=== PATIENT | male | born 1975 | race Hispanic/Latino ===

== ENCOUNTER 2019-10-07 01:49 | Emergency (ER) | payer OTHER ==
[2019-10-07 02:24] VITALS: BP 135/88
--- NOTE | 2019-10-07 02:39 | Emergency Department Report ---
ED ENT HPI - General Chief complaint: Earache Stated complaint: LEFT EARACHE Time Seen by Provider: 10/07/19 02:33 Source: patient Mode of arrival: Ambulatory Limitations: No Limitations - History of Present Illness MD complaint: ear pain -: Gradual Location: L ear Severity: mild, moderate Quality: dull Consistency: constant Worsens with: none Associated Symptoms: discharge from ear. denies: cough, gum swelling, toothache, sore throat, tinnitus - Related Data Previous Rx's Medication Instructions Recorded Last Taken Type Neomyc/Colist/Hydrocort/Thonzn 4 drops OS QID #10 ml 10/07/19 Unknown Rx [Cortisporin-Tc Ear Suspension] Allergies Allergy/AdvReac Type Severity Reaction Status Date / Time No Known Allergies Allergy Unverified 06/17/19 12:21 ED Dental HPI - General Chief complaint: Earache Stated complaint: LEFT EARACHE Time Seen by Provider: 10/07/19 02:33 Source: patient Mode of arrival: Ambulatory Limitations: No Limitations - Related Data Previous Rx's Medication Instructions Recorded Last Taken Type Neomyc/Colist/Hydrocort/Thonzn 4 drops OS QID #10 ml 10/07/19 Unknown Rx [Cortisporin-Tc Ear Suspension] Allergies Allergy/AdvReac Type Severity Reaction Status Date / Time No Known Allergies Allergy Unverified 06/17/19 12:21 ED Review of Systems ROS: Stated complaint: LEFT EARACHE Other details as noted in HPI Comment: All other systems reviewed and negative ED Past Medical Hx - Past Medical History Hx Diabetes: Yes Hx Psychiatric Treatment: Yes (Drug use, Behavioral) Additional medical history: prostate, bipolar, schizo, pstd, sciatic - Surgical History Additional Surgical History: hernia repair, boxer repair- right hand, nose sx - Social History Smoking Status: Current Every Day Smoker Substance Use Type: None - Medications Home Medications: Home Medications Medication Instructions Recorded Confirmed Last Taken Type Neomyc/Colist/Hydrocort/Thonzn 4 drops OS QID #10 ml 10/07/19 Unknown Rx [Cortisporin-Tc Ear Suspension] ED Physical Exam - General Limitations: No Limitations General appearance: alert, in no apparent distress - Head Head exam: Present: atraumatic, normocephalic - Eye Eye exam: Present: normal appearance - ENT ENT exam: Present: mucous membranes moist, other (Tragal tenderness in left ear. Mild canal swelling. No mastoid tenderness is noted. No no discharge. Right ear normal. Posterior pharynx is clear and patent no exudate) - Neck Neck exam: Present: normal inspection - Respiratory Respiratory exam: Present: normal lung sounds bilaterally. Absent: respiratory distress - Cardiovascular Cardiovascular Exam: Present: regular rate, normal rhythm. Absent: systolic murmur, diastolic murmur, rubs, gallop - GI/Abdominal GI/Abdominal exam: Present: soft, normal bowel sounds - Rectal Rectal exam: Present: deferred - Extremities Exam Extremities exam: Present: normal inspection - Back Exam Back exam: Present: normal inspection - Neurological Exam Neurological exam: Present: alert, oriented X3 - Psychiatric Psychiatric exam: Present: normal affect, normal mood - Skin Skin exam: Present: warm, dry, intact, normal color. Absent: rash ED Course Vital Signs 10/07/19 02:06 Temperature 98.0 F Pulse Rate 84 Respiratory 12 Rate Blood Pressure 135/88 O2 Sat by Pulse 99 Oximetry Critical care attestation.: If time is entered above; I have spent that time in minutes in the direct care of this critically ill patient, excluding procedure time. ED Disposition Clinical Impression: Otitis externa Disposition: DC-01 TO HOME OR SELFCARE Is pt being admited?: No Does the pt Need Aspirin: No Condition: Stable Instructions: Otitis Externa (ED) Prescriptions: Neomyc/Colist/Hydrocort/Thonzn [Cortisporin-Tc Ear Suspension] 4 drops OS QID #10 ml Referrals: PRIMARY CARE [Primary Care Provider] - 3-5 Days [facility] [Provider Group] - 3-5 Days
== END 2019-10-07 02:55 | disposition home or self-care (01) ==
LOC: ED 01:49
DX: H60.92 Unspecified otitis externa, left ear (principal); E11.9 Type 2 diabetes mellitus without complications; F25.0 Schizoaffective disorder, bipolar type; F17.200 Nicotine dependence, unspecified, uncomplicated; Z98.890 Other specified postprocedural states; Z79.899 Other long term (current) drug therapy
CPT/HCPCS: 99282

== ENCOUNTER 2019-10-18 03:18 | Emergency (ER) | payer OTHER ==
[2019-10-18] MEDS ORDERED: ACETAMINOPHEN 500 MG TAB PO ONE (04:51)
[2019-10-18] MEDS ORDERED: IBUPROFEN 600 MG TAB PO ONE (04:51)
[2019-10-18] MEDS ORDERED: predniSONE 20 MG TAB PO ONE (04:51)
--- NOTE | 2019-10-18 05:12 | Emergency Department Report ---
ED Extremity Problem HPI - General Chief complaint: Extremity Injury, Lower Stated complaint: LEFT HEEL PAIN Source: patient, EMS Mode of arrival: Stretcher Limitations: No Limitations - History of Present Illness Initial comments: Patient is a 43-year-old -Mongolian male with a history of bipolar disorder, schizophrenia, ejv-dtnurxu-snvywlfkx diabetes, chronic low back pain and chronic left plantar foot pain who presents to the ED with complaint of acute exacerbation of his chronic left plantar foot pain for the last 2 days. Patient states that he has not been able to bear weight on the left plantar foot at the heel. Patient also confirmed that he has been walking with in flip-flops and this may have made the pain worse. Patient denies traumatic injury, nausea, vomiting no chest pain, shortness of breath, fever, chills, back pain, traumatic injury or fall and heavy lifting. MD Complaint: extremity pain, joint paint (Left heel pain left plantar foot pain at the heel) -: Gradual, year(s) (2) Location: left, lower extremity (Left plantar foot at the heel) History of Same: Yes (Chronic) -: Yes arthralgia Radiation: distal Severity scale (0 -10): 7 Quality: aching, sharp Consistency: constant Improves with: rest Worsens with: weight bearing, walking, exertion, palpation Associated Symptoms: denies other symptoms, arthralgias. denies: chest pain, fever, myalgias, rash, other - Related Data Previous Rx's Medication Instructions Recorded Last Taken Type Neomyc/Colist/Hydrocort/Thonzn 4 drops OS QID #10 ml 10/07/19 Unknown Rx [Cortisporin-Tc Ear Suspension] Naproxen 500 mg PO Q12H PRN #30 tablet 10/18/19 Unknown Rx predniSONE [Deltasone] 60 mg PO QDAY #15 tab 10/18/19 Unknown Rx Allergies Allergy/AdvReac Type Severity Reaction Status Date / Time No Known Allergies Allergy Unverified 06/17/19 12:21 ED Review of Systems ROS: Stated complaint: LEFT HEEL PAIN Other details as noted in HPI Constitutional: denies: chills, fever Eyes: denies: eye pain, eye discharge, vision change ENT: denies: ear pain, throat pain Respiratory: denies: cough, shortness of breath, wheezing Cardiovascular: denies: chest pain, palpitations Endocrine: no symptoms reported Gastrointestinal: denies: abdominal pain, nausea, diarrhea Genitourinary: denies: urgency, dysuria Musculoskeletal: arthralgia (1 left plantar foot pain). denies: back pain, joint swelling Skin: denies: rash, lesions Neurological: denies: headache, weakness, paresthesias Psychiatric: denies: anxiety, depression Hematological/Lymphatic: denies: easy bleeding, easy bruising ED Past Medical Hx - Past Medical History Previous Medical History?: Yes Hx Diabetes: Yes Hx Psychiatric Treatment: Yes (Drug use, Behavioral) Additional medical history: prostate, bipolar, schizo, pstd, sciatic - Surgical History Past Surgical History?: Yes Additional Surgical History: hernia repair, boxer repair- right hand, nose sx - Social History Smoking Status: Current Every Day Smoker Substance Use Type: None - Medications Home Medications: Home Medications Medication Instructions Recorded Confirmed Last Taken Type Neomyc/Colist/Hydrocort/Thonzn 4 drops OS QID #10 ml 10/07/19 Unknown Rx [Cortisporin-Tc Ear Suspension] Naproxen 500 mg PO Q12H PRN #30 tablet 10/18/19 Unknown Rx predniSONE [Deltasone] 60 mg PO QDAY #15 tab 10/18/19 Unknown Rx ED Physical Exam - General Limitations: No Limitations General appearance: alert, in no apparent distress - Head Head exam: Present: atraumatic, normocephalic, normal inspection - Eye Eye exam: Present: normal appearance, PERRL, EOMI Pupils: Present: normal accommodation - ENT ENT exam: Present: normal exam, normal orophraynx, mucous membranes moist, TM's normal bilaterally, normal external ear exam - Neck Neck exam: Present: normal inspection, full ROM - Respiratory Respiratory exam: Present: normal lung sounds bilaterally. Absent: respiratory distress, wheezes, rales, rhonchi, chest wall tenderness, accessory muscle use, decreased breath sounds, prolonged expiratory - Cardiovascular Cardiovascular Exam: Present: regular rate, normal rhythm, normal heart sounds. Absent: systolic murmur, diastolic murmur, rubs, gallop - GI/Abdominal GI/Abdominal exam: Present: soft, normal bowel sounds. Absent: tenderness, guarding, rebound, hyperactive bowel sounds, hypoactive bowel sounds, organomegaly - Extremities Exam Extremities exam: Present: normal inspection, full ROM, tenderness (Palpable left plantar foot tenderness), normal capillary refill. Absent: pedal edema, calf tenderness - Back Exam Back exam: Present: normal inspection, full ROM. Absent: tenderness, CVA tenderness (R), CVA tenderness (L), muscle spasm, paraspinal tenderness - Neurological Exam Neurological exam: Present: alert, oriented X3, CN II-XII intact, normal gait, reflexes normal - Psychiatric Psychiatric exam: Present: normal affect, normal mood - Skin Skin exam: Present: warm, dry, intact, normal color. Absent: rash ED Course Vital Signs 10/18/19 03:25 Temperature 98.6 F Pulse Rate 90 Respiratory 20 Rate Blood Pressure 136/92 O2 Sat by Pulse 95 Oximetry ED Medical Decision Making - Medical Decision Making This is a 43-year-old -Mongolian male with a history of bipolar disorder, schizophrenia, asn-tjdqlpy-rfalhcmoe diabetes, chronic low back pain and chronic left plantar foot pain who presents to the ED with complaint of acute exacerbation of his chronic left plantar foot pain for the last 2 days. Patient states that he has not been able to bear weight on the left plantar foot at the heel. Patient also confirmed that he has been walking with in flip-flops and this may have made the pain worse. In the ED, patient is alert and oriented x3 and is not in distress. Patient was treated for pain in the ED and was discharged home on pain medications and advised follow-up with his primary care physician in 5 to 7 days for reevaluation or return to the ED immediately if symptoms get worse. - Differential Diagnosis plantar fasciitis; Osteoarthritis; Tendonitis; Muscle strain Critical care attestation.: If time is entered above; I have spent that time in minutes in the direct care of this critically ill patient, excluding procedure time. ED Disposition Clinical Impression: Plantar fasciitis of left foot, Calcific tendinitis of left foot Disposition: DC-01 TO HOME OR SELFCARE Is pt being admited?: No Does the pt Need Aspirin: No Condition: Stable Instructions: Plantar Fasciitis (ED), Calcific Tendinitis (ED) Additional Instructions: Take medication with food, drink plenty of fluids and follow-up with your primary care physician in 5 to 7 days for reevaluation. Return to the ED immediately if symptoms get worse. Prescriptions: predniSONE [Deltasone] 60 mg PO QDAY #15 tab Naproxen 500 mg PO Q12H PRN #30 tablet PRN Reason: Pain , Severe (7-10) Referrals: [facility] [Provider Group] - 3-5 Days [facility] [Outside] - 3-5 Days Time of Disposition: 05:18 Print Language: TAIWANESE
[2019-10-18 06:44] VITALS: BP 128/88
== END 2019-10-18 06:06 | disposition home or self-care (01) ==
LOC: ED 03:18
DX: M72.2 Plantar fascial fibromatosis (principal); M65.272 Calcific tendinitis, left ankle and foot; F25.0 Schizoaffective disorder, bipolar type; E11.9 Type 2 diabetes mellitus without complications; F17.200 Nicotine dependence, unspecified, uncomplicated; Z98.890 Other specified postprocedural states; Z79.899 Other long term (current) drug therapy
CPT/HCPCS: 99283; J7512

== ENCOUNTER 2020-04-15 13:31 | Emergency (ER) | payer OTHER ==
[2020-04-15 13:49] VITALS: BP 116/82
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
== END 2020-04-15 15:45 | disposition home or self-care (01) ==
LOC: ED 13:31
DX: S66.912A Strain of unspecified muscle, fascia and tendon at wrist and hand level, left hand, initial encounter (principal); S60.221A Contusion of right hand, initial encounter; E11.9 Type 2 diabetes mellitus without complications; Z98.890 Other specified postprocedural states; Z79.899 Other long term (current) drug therapy; Y04.8XXA Assault by other bodily force, initial encounter; Y93.89 Activity, other specified; Y92.89 Other specified places as the place of occurrence of the external cause; Y99.0 Civilian activity done for income or pay

== ENCOUNTER 2020-04-19 15:41 | Emergency (ER) | payer OTHER ==
[2020-04-19 16:47] VITALS: BP 127/88
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
== END 2020-04-19 18:30 | disposition home or self-care (01) ==
LOC: ED 15:41
DX: M20.011 Mallet finger of right finger(s) (principal); E11.9 Type 2 diabetes mellitus without complications; F17.200 Nicotine dependence, unspecified, uncomplicated; F12.90 Cannabis use, unspecified, uncomplicated; F25.0 Schizoaffective disorder, bipolar type; Z79.899 Other long term (current) drug therapy